=== PATIENT | female | born 1950 | race Caucasian/White ===

== ENCOUNTER 2016-12-14 20:36 | Emergency (ER) | payer OTHER ==
--- NOTE | ~2016-12-14 | EKG ---
PATIENT: JHON CASTANON UNIT #: [id number] Ventricular Rate: 120 BPM Atrial Rate: 120 BPM P-R Interval: 138 ms QRS Duration: 80 ms Q-T Interval: 320 ms QTC Calculation(Bezet): 452 ms P Wentworth: 89 degrees Calculated R Wentworth: 73 degrees Calculated T Wentworth: 82 degrees Diagnosis Line: Sinus tachycardia Diagnosis Line: Biatrial enlargement Diagnosis Line: Nonspecific ST abnormality Diagnosis Line: Abnormal ECG Diagnosis Line: No previous ECGs available Diagnosis Line: Confirmed by CHRIST TAPIA MD ([id number]) on 12/16/2016 Diagnosis Line: 7:31:03 AM INTERPRETING MD: REGINA GOMEZ
--- NOTE | ~2016-12-14 | CR63 ---
[facility] A Service of [facility] RADIOLOGY TEXT RESULTS PATIENT: JHON CASTANON LOCATION: [facility]FT[facility] : 54 UNIT #: [id number] AGE: [address]: Denny Uriostegui SEX: F ORDER DR: [id number] [facility] [address] [place], [place] [address] [id number] MR#: [id number] Acc #: [id number] NAME: JHON CASTANON : 1950 SEX: F STUDY DATE/TIME: 12/14/2016 20:26 UNIT: [facility] ROOM: STUDY DESCRIPTION: CR Chest 2 View Attending Physician: Denny Uriostegui P.A.-C. Ordering Physician: Denny Uriostegui P.A.-C. Primary Care Physician: Kaden Izaguirre M.D. MEDICAL IMAGING REPORT This report is preliminary unless electronic signature is present EXAM PA and lateral chest HISTORY Cough and congestion and nausea for 1 week. FINDINGS 2 views of the chest demonstrate bilateral emphysema with hyperinflation of both lungs. No airspace infiltrates. No pleural effusions. Mild hypertrophic spurring upper and mid thoracic spine. IMPRESSION No acute findings. Mild bilateral emphysema and hyperinflation of both lungs. Dictated by... Delgado Sosa M.D. THIS IS AN ELECTRONICALLY VERIFIED REPORT Delgado Sosa M.D. at 12/16/2016 12:28 PM DFL/bd TD: 12/16/2016 06:33 JOB #: [id number] MEDICAL IMAGING REPORT COPY
[2016-12-14 20:43] LABS: INFLUENZA A NEG (NEG); INFLUENZA B NEG (NEG)
[2016-12-14 20:56] LABS: BASOPHIL% 0.5 % (0-2.5); EOSINOPHIL% 0.1 % (0.0-7.0); HEMATOCRIT 40.9 % (35.0-45.0); HEMOGLOBIN 13.7 gm/dL (12.0-16.0); LYMPHOCYTE# 0.9 X10e3 (1.0-3.5); LYMPHOCYTE% 13.4 % (17.0-45.0); MEAN CELL VOLUME 89.9 FL (83-96); MEAN CORPUSCULAR HEMOGLOBIN 30.1 PG (28-34); MEAN CORPUSCULAR HGB CONC 33.4 g/dL (30-36); MEAN PLATELET VOLUME 7.6 FL (6.5-11.5); MONOCYTE# 0.6 X10e3 (0-1.0); MONOCYTE% 9.3 % (3.0-12.0); NEUTROPHIL# 5.1 X10e3 (1.5-7.1); NEUTROPHIL% 76.7 % (40-75); PLATELET COUNT 373 X10e3 (140-420); RED BLOOD COUNT 4.54 X10e (3.90-5.30); RED CELL DISTRIBUTION WIDTH 13.6 % (11.0-15.5); WHITE BLOOD COUNT 6.6 X10e3 (4.0-10.5)
[2016-12-14 20:57] LABS: DIFF IND NO
[2016-12-14 21:01] LABS: POC - CKMB 1.7 ng/mL (0.0-7.9); POC - TROPONIN <0.05 ng/mL (<=0.05)
[2016-12-14 22:11] LABS: BLOOD UREA NITROGEN 17 mg/dL (9-23); BUN/CREATININE RATIO 24.28; CALCIUM SERUM 9.3 mg/dL (8.4-10.2); CARBON DIOXIDE 23 mmol/L (22-31); CHLORIDE 99 mmol/L (100-111); CREATININE SERUM 0.7 mg/dL (0.6-1.4); GLOM FILT RATE Estimated ABOVE60 mL/min (>60); GLUCOSE FASTING 136 mg/dL (70-110); POTASSIUM 4.5 mmol/L (3.5-5.1); SODIUM 135 mmol/L (135-145)
== END 2016-12-14 22:38 | disposition home or self-care (01) ==
LOC: CFTX 20:36
PROVIDERS: Physician Assistant
DX: J44.1 Chronic obstructive pulmonary disease with (acute) exacerbation (principal); J06.9 Acute upper respiratory infection, unspecified; E11.9 Type 2 diabetes mellitus without complications; I10 Essential (primary) hypertension; F17.210 Nicotine dependence, cigarettes, uncomplicated
CPT/HCPCS: 36415; 71020; 80048; 82553; 83880; 84484; 85025; 87804; 93005; 94640; 96361; 96374; 99284; J2930

== ENCOUNTER 2017-01-22 21:39 | Emergency (ER) | payer OTHER | END 2017-01-22 21:46 | disposition home or self-care (01) | LOC: CED 21:39 | DX: R11.2 Nausea with vomiting, unspecified (principal); E11.9 Type 2 diabetes mellitus without complications; E78.00 Pure hypercholesterolemia, unspecified; I10 Essential (primary) hypertension; F17.200 Nicotine dependence, unspecified, uncomplicated | CPT/HCPCS: 99282 ==

== ENCOUNTER 2017-06-09 03:46 | Emergency (ER) | payer OTHER | END 2017-06-09 05:45 | disposition left against medical advice (07) | LOC: CED 03:46 | DX: Z53.21 Procedure and treatment not carried out due to patient leaving prior to being seen by health care provider (principal) ==